=== PATIENT | female | born 1995 | race Caucasian/White ===

== ENCOUNTER 2018-05-24 22:26 | Emergency (ER) | payer BC, MEDICAID ==
[~2018-05-24] VITALS: Ht 157.5 cm; Wt 57.0 kg
[2018-05-24] MEDS ORDERED: SODIUM CHLORIDE 0.9% 1,000 ML IV SCH (22:59)
[2018-05-24] MEDS ORDERED: FAMOTIDINE 20MG/2ML VIAL IV ONE (23:00)
[2018-05-24] MEDS ORDERED: METHYLPREDNISOLONE SOD SUCC 125 MG/2 ML VIAL IV ONE (23:00)
[2018-05-24] MEDS ORDERED: ONDANSETRON HCL 4MG/2ML INJ IV ONE (23:00)
[2018-05-24] MEDS ORDERED: DIPHENHYDRAMINE 50MG/ML VIAL IV ONE (23:00)
[2018-05-25 01:29] VITALS: BP 105/59
== END 2018-05-25 01:31 | disposition home or self-care (01) ==
LOC: ER 22:43
DX: O26.891 Other specified pregnancy related conditions, first trimester (principal); O99.511 Diseases of the respiratory system complicating pregnancy, first trimester; T78.1XXA Other adverse food reactions, not elsewhere classified, initial encounter; Z3A.01 Less than 8 weeks gestation of pregnancy; L50.8 Other urticaria; J45.909 Unspecified asthma, uncomplicated; Z88.6 Allergy status to analgesic agent; Z88.5 Allergy status to narcotic agent; Z91.013 Allergy to seafood
CPT/HCPCS: 81025; 96374; 96375; 99285; J1200; J2405; J2930; J3490; J7030